=== PATIENT | female | born 1945 | race Caucasian/White ===

== ENCOUNTER 2019-08-30 06:00 | Day surgery (SDC) | payer MEDICARE, BC ==
[2019-08-30 06:51] LABS: PTT 28.6 SEC (22.9-36.1)
[2019-08-30] MEDS ORDERED: Bacitracin Zinc Ointment 30 gm TUBE ONE (06:55)
[2019-08-30] MEDS ORDERED: Sodium Chloride 0.9% 0 ML ONE (06:55)
[2019-08-30] MEDS ORDERED: Fentanyl 250 MCG/5 ML VIAL ONE (06:58)
[2019-08-30] MEDS ORDERED: Thrombin 5000 UNITS/5 ML VIAL ONE (06:59)
[2019-08-30] MEDS ORDERED: Rocuronium Bromide 10 MG/ML (10ML VIAL) ONE (10:51)
[2019-08-30] MEDS ORDERED: Glycopyrrolate 0.2 MG/ML 5 ML SYRINGE ONE (10:51)
[2019-08-30] MEDS ORDERED: Dexamethasone 20 MG/5 ML VIAL ONE (10:51)
[2019-08-30] MEDS ORDERED: Ondansetron PF 4 MG/2 ML Vial ONE (10:51)
[2019-08-30] MEDS ORDERED: PROPOFOL 200 MG/20 ML VIAL ONE (10:51)
[2019-08-30] MEDS ORDERED: ePHEDrine/0.9% NaCl/PF SYRINGE 50 mg/10 ml ONE (10:51)
[2019-08-30] MEDS ORDERED: Fleet Enema 133 ML BOT PR PRN (11:10)
[2019-08-30] MEDS ORDERED: Bisacodyl 10 MG SUPP PR PRN (11:10)
[2019-08-30] MEDS ORDERED: Mag-Al 1200 mg/1200 mg/30 ML UDCUP PO PRN (11:10)
[2019-08-30] MEDS ORDERED: Morphine 2 MG/ML SYRINGE SLOW IVP PRN (11:10)
[2019-08-30] MEDS ORDERED: traMADol HCl 50 MG TAB PO PRN (11:10)
[2019-08-30] MEDS ORDERED: Acetaminophen 325 MG TAB PO PRN (11:10)
[2019-08-30] MEDS ORDERED: Milk Of Magnesia 30 ML UDCUP PO PRN (11:10)
[2019-08-30] MEDS ORDERED: Ondansetron PF 4 MG/2 ML Vial IVP PRN (11:10)
[2019-08-30] MEDS ORDERED: Ondansetron HCl/PF 4 MG/2 ML Vial IVP PRN (11:17)
[2019-08-30] MEDS ORDERED: Fentanyl 100 MCG/2 ML VIAL ONE (11:33)
--- NOTE | 2019-08-30 13:32 | OP ---
DATE OF PROCEDURE: 08/30/2019 LOCATION: OR #5. [employer] SORTER: Ann Guerra PA-C PREPROCEDURE DIAGNOSES: Multilevel lumbar stenosis with low back and leg pain. POSTPROCEDURE DIAGNOSES: Multilevel lumbar stenosis with low back and leg pain. PROCEDURES PERFORMED: L2-L3, L3-L4, L4-L5 and L5-S1 laminectomies, partial facetectomies and foraminotomies. DESCRIPTION OF PROCEDURE: After informed consent was obtained from the patient, the patient was brought to the OR. Proper patient, pause, and identification were carried out. The patient was then placed under excellent general endotracheal anesthesia and positioned prone on the OR table. All appropriate points were padded. We identified the L2, L3, L4, L5, and S1 dorsal spines and lamina. Linear mague was made over this region. This area was sterilely cleansed, prepared and draped. Proper patient, pause, and identification were carried out. The wound was then opened with combination of sharp, monopolar, and blunt dissection. The L2, L3, L4, L5 and S1 dorsal spines and lamina were exposed. Localization film confirmed our area of interest. We then performed L2, L3, L4, L5 and S1 laminectomies, partial facetectomies and foraminotomies. There was no spinal fluid leak. Hemostasis was maximized throughout. The wound was then closed in anatomic layers following copious irrigation and sprinkled vancomycin powder. The patient emerged from anesthesia. Job ID: [id number]
[2019-08-30 13:47] VITALS: BMI 32.3
[2019-08-30] MEDS: Sodium Chloride 0.9% 1,000 ML IV SCH (14:11)
[2019-08-30] MEDS: CEFAZOLIN 2 GM in Premix Bag 1 BAG IVPB SCH ×2 (14:11→21:07)
[2019-08-30] MEDS: Acetaminophen/Codeine 30-300mg Tablet PO PRN ×2 (14:23→21:15)
[2019-08-30] MEDS: tiZANidine HCl 4 MG TAB PO PRN ×2 (14:24→23:16)
[2019-08-30] MEDS: HYDROcodone/Acetaminophen 7.5/325 mg Tablet PO PRN (16:37)
[2019-08-30] MEDS ORDERED: Atorvastatin Calcium 10 MG TAB PO SCH (21:00)
[2019-08-31] MEDS: Sodium Chloride 0.9% 1,000 ML IV SCH (01:50)
[2019-08-31] MEDS: Acetaminophen/Codeine 30-300mg Tablet PO PRN ×2 (03:21→07:32)
--- NOTE | 2019-08-31 08:05 | PRG ---
DATE OF SERVICE: 08/31/2019 I saw Flakita Cuadra in her hospital room this morning. Before I arrive, she was ambulating in the hallway next to her daughter with not requiring help. Ms. Cuadra has no complaints and looks forward to getting home today. Her vital signs and neurological examination suggest that discharge would be safe. My plan is for Ms. Cuadra to get her home going prescriptions. She knows to shower tomorrow. If she showers today, she is going to try to clean her front side and keep the lower back dry. She has followup arrangements already scheduled with Dr. Farris. Job ID: [id number]
[2019-08-31 08:10] VITALS: BP 157/69; TEMP 98.8
[2019-08-31] MEDS ORDERED: Lisinopril 5 MG TAB PO SCH (09:00)
[2019-08-31] MEDS ORDERED: FLU VACC TS2019-20(65YR UP)/PF 180 MCG/0.5 ML SYRINGE IM ONE (09:00)
[2019-08-31] MEDS: HYDROcodone/Acetaminophen 7.5/325 mg Tablet PO PRN (10:53)
[2019-08-31] MEDS: tiZANidine HCl 4 MG TAB PO PRN (10:53)
== END 2019-08-31 11:10 | disposition home or self-care (01) ==
LOC: SDC 06:00 → SURG B 13:28 → SDC 08-31 11:10
PROVIDERS: ATTEND Surgery
PROC: 01NB0ZZ Release Lumbar Nerve, Open Approach (ICD-10-PCS; principal; 2019-08-30)
DX: M48.062 Spinal stenosis, lumbar region with neurogenic claudication (principal); M54.16 Radiculopathy, lumbar region; I10 Essential (primary) hypertension; E78.5 Hyperlipidemia, unspecified; Z79.82 Long term (current) use of aspirin; Z79.899 Other long term (current) drug therapy; Z88.1 Allergy status to other antibiotic agents; Z88.8 Allergy status to other drugs, medicaments and biological substances
CPT/HCPCS: 36415; 76000; 85610; 85730; J0690; J1100; J2405; J2704; J3010; J3370; J3490

== ENCOUNTER 2022-09-08 06:01 | Observation (INO) | payer MEDICARE, BC ==
[2022-09-08] MEDS ORDERED: Thrombin 5000 UNITS/5 ML VIAL ONE (06:24)
[2022-09-08] MEDS ORDERED: fentaNYL PF 100 MCG/2 ML SYRINGE ONE (06:47)
[2022-09-08] MEDS ORDERED: HYDROmorphone 0.5 MG/0.5 ML SYRINGE ONE (06:47)
[2022-09-08] MEDS ORDERED: Sodium Chloride 0.9% 100 ML ONE (07:23)
[2022-09-08] MEDS ORDERED: CEFAZOLIN 2 GM VIAL ONE (07:23)
[2022-09-08] MEDS ORDERED: PROPOFOL 200 MG/20 ML VIAL ONE (07:54)
[2022-09-08] MEDS ORDERED: NEOSTIGMINE 3 MG/3 ML SYR 3 MG/3 ML SYRINGE ONE (07:54)
[2022-09-08] MEDS ORDERED: Ondansetron PF 4 MG/2 ML Vial ONE (07:54)
[2022-09-08] MEDS ORDERED: ePHEDrine 50 MG/ML VIAL ONE (07:54)
[2022-09-08] MEDS ORDERED: Phenylephrine 10 MG/ML VIAL ONE (07:54)
[2022-09-08] MEDS ORDERED: Glycopyrrolate 0.2 MG/ML 5 ML SYRINGE ONE (07:54)
[2022-09-08] MEDS ORDERED: Rocuronium Bromide 10 MG/ML (10ML VIAL) ONE (07:54)
[2022-09-08] MEDS ORDERED: Dexamethasone 20 MG/5 ML VIAL ONE (07:54)
[2022-09-08] MEDS ORDERED: Labetalol HCl 100 MG/20 ML VIAL ONE (10:06)
[2022-09-08] MEDS ORDERED: traMADol HCl 50 MG TAB PO PRN (10:09)
[2022-09-08] MEDS ORDERED: Acetaminophen 325 MG TAB PO PRN (10:09)
[2022-09-08] MEDS ORDERED: diphenhydrAMINE 25 MG CAP PO PRN (10:09)
[2022-09-08] MEDS ORDERED: Ondansetron PF 4 MG/2 ML Vial IVP PRN (10:09)
[2022-09-08] MEDS ORDERED: HYDROcodone/Acetaminophen 7.5/325 mg Tablet PO PRN (10:09)
[2022-09-08] MEDS ORDERED: hydrALAZINE 20 MG/ML VIAL SLOW IVP PRN (10:15)
[2022-09-08] MEDS ORDERED: tiZANidine HCl 4 MG TAB PO PRN (10:15)
[2022-09-08] MEDS ORDERED: FENTANYL 50 MCG/ML 1 ML VIAL ONE (10:23)
[2022-09-08] MEDS ORDERED: Morphine 4 MG/ML VIAL SLOW IVP PRN (10:41)
[2022-09-08 11:48] LABS: SARS-CoV-2 NAA Rapid Test Not Detected (NotDetected)
[2022-09-08] MEDS: Sodium Chloride 0.9% 1,000 ML IV SCH ×2 (11:51→23:51)
[2022-09-08 11:53] VITALS: BMI 30.7
[2022-09-08] MEDS: Acetaminophen/Codeine 30-300mg Tablet PO PRN ×3 (13:29→22:11)
[2022-09-08] MEDS ORDERED: CEFAZOLIN 2 GM in Sodium Chloride 0.9% 100 ML IVPB SCH (14:00)
[2022-09-08] MEDS: CEFAZOLIN 2 GM in Sodium Chloride 0.9% 100 ML IVPB SCH ×2 (15:53→23:16)
[2022-09-08] MEDS ORDERED: Atorvastatin Calcium 10 MG TAB PO SCH (21:00)
[2022-09-09] MEDS: Acetaminophen/Codeine 30-300mg Tablet PO PRN (06:11)
[2022-09-09] MEDS ORDERED: Calcium Carbonate 600 MG + Vit D TAB PO SCH (09:00)
[2022-09-09] MEDS ORDERED: Magnesium Oxide 250 MG TAB PO SCH (09:00)
[2022-09-09] MEDS ORDERED: Lisinopril 5 MG TAB PO SCH (09:00)
[2022-09-09] MEDS ORDERED: Multivit, Therapeutic 1 TAB PO SCH (09:00)
[2022-09-09 09:18] VITALS: BP 109/69; TEMP 98.5
== END 2022-09-09 11:10 | disposition home or self-care (01) ==
LOC: SDC 06:01 → SURG A 10:09
PROVIDERS: ADMIT Surgery; ATTEND Surgery
PROC: 01NB0ZZ Release Lumbar Nerve, Open Approach (ICD-10-PCS; principal; 2022-09-08)
PROC: 0SB20ZZ Excision of Lumbar Vertebral Disc, Open Approach (ICD-10-PCS; 2022-09-08)
DX: M51.16 Intervertebral disc disorders with radiculopathy, lumbar region (principal); M48.061 Spinal stenosis, lumbar region without neurogenic claudication; I10 Essential (primary) hypertension; E78.5 Hyperlipidemia, unspecified; Z79.899 Other long term (current) drug therapy; Z88.1 Allergy status to other antibiotic agents; Z88.8 Allergy status to other drugs, medicaments and biological substances; Z98.890 Other specified postprocedural states; Z20.822 Contact with and (suspected) exposure to COVID-19
CPT/HCPCS: 63030; 63042; J3010; U0002; J1100; J1170; J2370; J2405; J2704; J3370; J3490